=== PATIENT | female | born 1995 | race Caucasian/White ===

== ENCOUNTER 2018-09-28 10:06 | Emergency (ER) | payer OTHER ==
[~2018-09-28] VITALS: Ht 165.1 cm; Wt 57.6 kg
[2018-09-28 10:07] VITALS: BP 111/67
--- NOTE | 2018-09-28 10:23 | NUR ---
ED Nurse Note: Patient presents to ER due to laceration on the left index finger. Patient was using a grater at work and injured the finger. Oozing blood noted. Applied pressure dresing. Last DT shot was in 2011 per patient. Addendum: 09/28/18 at 1035 by SANTI affected site: tip of the left index finger.
[2018-09-28] MEDS ORDERED: Surgicel 4in x 8in TOPIC ONE (10:30)
--- NOTE | 2018-09-28 10:34 | NUR ---
ED Nurse Note: ERMD applied surgicel and dressing to left index finger. Patient tolerated the procedure with minimal discomfort.
--- NOTE | 2018-09-28 10:45 | NUR ---
ED Discharge: Patient is being discharged from medical care. Awake, alert and oriented x4. After care instructions were given. Patient verbalized understanding of After care instructions. ID band were removed. Patient ambulated out with all personal belongings with steady gait.
--- NOTE | 2018-09-28 13:40 | Emergency Room Report ---
History of Present Illness General Chief Complaint: Laceration Source: Patient Present Illness HPI Patient presents with complaints of injury to the left index finger Reports that she was using a slicer when she injured the finger This occurred prior to arrival patient was slicing fruit such as cucumber and alyx Denies any wrist pain Denies any elbow pain denies any other trauma she feels that the bleeding was minimally controlled with pressure however continues to have oozing Allergies: Coded Allergies: PENICILLINS (Verified Allergy, Unknown, 09/28/18) Patient History Past Medical History: see triage record Pertinent Family History: none Last Menstrual Period: 08/30/18 Reviewed Nursing Documentation: PMH: Agreed; PSxH: Agreed Nursing Documentation-PMH Past Medical History: No Stated History Review of Systems All Other Systems: negative except mentioned in HPI Physical Exam Vital Signs Date Time Temp Pulse Resp B/P (MAP) Pulse Ox O2 Delivery O2 Flow Rate FiO2 09/28/18 10:07 98.1 16 111/67 98 Room Air 09/28/18 10:07 73 Sp02 EP Interpretation: reviewed, normal General Appearance: well appearing, no apparent distress Head: normocephalic, atraumatic Eyes: bilateral eye PERRL, bilateral eye EOMI ENT: normal pharynx Neck: supple Respiratory: no respiratory distress, no retraction, no accessory muscle use Cardiovascular #1: regular rate, rhythm Gastrointestinal: non tender, soft Musculoskeletal: other - Appropriate flexion-extension of the left index finger Neurologic: alert, oriented x3, responsive Skin: other - Avulsion of the distal finger left index finger, no obvious injury to the nail itself Lymphatic: no adenopathy Procedures Laceration/Wound Repair Progress Area cleansed, total length is approximately 3 mm. This is an avulsion injury, small pressure dressing is applied on top with Kerlix. This does stop the bleeding well and patient tolerated appropriately Medical Decision Making Diagnostic Impression: Primary Impression: skin avulsion ER Course The area in question has dressing applied no stitches or other acute therapy is required Patient did not require tetanus shot and is stable for close outpatient follow- up Last Vital Signs Date Time Temp Pulse Resp B/P (MAP) Pulse Ox O2 Delivery O2 Flow Rate FiO2 09/28/18 10:45 98.1 76 16 09/28/18 10:07 111/67 (82) 98 Room Air Status: improved Disposition: HOME, SELF-CARE Condition: Improved Scripts No Active Prescriptions or Reported Meds Referrals: NON PHYSICIAN (PCP) Patient Instructions: Deep Skin Avulsion Additional Instructions: Patient is provided with the discharge instructions notified to follow up with primary doctor in the next 2-3 days otherwise return to the er with any worsening symptoms. Please note that this report is being documented using DRAGON technology. This can lead to erroneous entry secondary to incorrect interpretation by the dictating instrument. Ana Plata DO Sep 28, 2018 13:40
== END 2018-09-28 10:45 | disposition home or self-care (01) ==
LOC: EMR 10:30
DX: S61.201A Unspecified open wound of left index finger without damage to nail, initial encounter (principal); W26.0XXA Contact with knife, initial encounter; Y92.9 Unspecified place or not applicable
CPT/HCPCS: 99282